=== PATIENT | female | born 1950 | race Caucasian/White ===

== ENCOUNTER 2025-03-19 15:37 | Emergency (ER) | payer MEDICARE, OTHER, SELFPAY ==
[2025-03-19] VITALS (13 sets, daily range): BP systolic 94–130; BP diastolic 44–72; PULSE 66–95; BMI 40.8
[2025-03-19 16:12] LABS: Hematocrit 34.3 % (37.0-47.0); Hemoglobin 12.1 g/dL (12.0-16.0); Mean Corp Hgb Conc. 35.3 g/dL (33.0-37.0); Mean Corpuscular Volume 87.3 fL (81.0-99.0); Nucleated Red Blood Cells % 0 %; Platelet Count 240 10^3/uL (130-400); Red Cell Dist. Width 12.1 % (11.5-14.5)
--- NOTE | 2025-03-19 16:28 | ED.GENMED ---
History of Present Illness
General
Chief Complaint: Dizziness
Source: patient
Exam Limitations: none
Time Seen by Provider: 03/19/25 16:12
Nursing documentation reviewed up to this point in time: agreed with
History of Present Illness
History of Present Illness:
Patient is a 74-year-old female who presents to the emergency department after near syncopal episode in grocery store. Patient reports that she was out shopping a grocery store about 1 hour prior to arrival when she started to feel very lightheaded
and experienced tunnel vision. She initially thought symptoms would pass however symptoms persisted prompting her to sit down on the ground of the cursor. She states every time she lifted her head she continued to have a very lightheaded sensation
and tunnel vision. She then had to lay down on the ground to prevent passing out. She did have nausea which preceded her feeling of lightheadedness.
By arrival to emergency department�patient states symptoms are improved however only when she is lying flat.
She denies any associated dizziness or sensation of movement. She denies any associated chest pain or shortness of breath. However she did note feeling a mild tightness sensation in her throat. She denies any recent viral symptoms including
fever, cough.
Patient states that this did happen 1 time in the past and it was suspected to be secondary to dehydration. Patient states she has been staying well-hydrated today however has not eaten anything.
Review of Systems
Review of Systems
Allergies reviewed?: Yes
All Other Systems: ROS reviewed and negative except as documented in HPI and ROS
Phy Exam
Physical Exam
Physical Exam:
Vitals: BP soft. Otherwise vital signs stable. Afebrile
General: Patient is laying flat on examination. In no distress
Skin: Warm and dry, no rashes or lesions
Head: Normocephalic, atraumatic
Eyes: Sclera nonicteric. Pupils equal round and reactive to light bilaterally
Throat: Protecting airway
Neck: Normal ROM, no cervical spine tenderness, no meningismus. No JVD
Cardiac: Regular rate and rhythm, no murmurs.
Pulm: Normal respiratory effort, no wheezes, rales, rhonchi heard on exam
.
Abdomen: Abdomen soft and nontender.
Extremities: No evidence of cyanosis or edema. Palpable DP pulses bilaterally
Neuro: AAOx3. Grossly intact.
Psychiatric: Normal affect.
Course
Orders/Labs/Results
Orders:
Orders
03/19/25 15:50
Electrocardiogram (*1) Urgent
Reason for Study: Vertigo / Dizzy
03/19/25 15:51
EKG- Treatment ONCE
03/19/25 16:04
Basic Metabolic Panel Urgent
Complete Blood Count/With Diff Urgent
03/19/25 16:27
Orthostatic VS- Treatment ONCE
03/19/25 16:36
Troponin I Urgent
03/19/25 17:36
Basic Metabolic Panel Urgent
Serum Osmolality Urgent
03/19/25 18:21
Osmolality, Random Urine Urgent
Date Specimen was Collected: 03/19/25
Time Specimen was Collected: 18:17
Urine Sodium Urgent
Date Specimen was Collected: 03/19/25
Time Specimen was Collected: 18:17
03/19/25 18:37
Comprehensive Metabolic Panel Urgent
Abnormal Lab Results
03/19/25 03/19/25 03/19/25
16:04 17:36 18:37
WBC 11.5 H 10^3/uL
(4.8-10.8)
RBC 3.93 L 10^6/uL
(4.20-5.40)
Hct 34.3 L %
(37.0-47.0)
Abs Immat Gran (auto) 0.1 H 10^3/uL
(0-0.05)
Absolute Neuts (auto) 8.8 H 10^3/uL
(1.4-6.5)
Absolute Monos (auto) 1.0 H 10^3/uL
(0.1-0.6)
Neutrophils % 76.6 H %
(42.2-75.2)
Lymphocytes % 12.7 L %
(20.5-51.1)
Sodium 126 L mmol/L 126 L mmol/L 128 L mmol/L
(135-145) (135-145) (135-145)
Carbon Dioxide 18 L mmol/L 18 L mmol/L 19 L mmol/L
(22-30) (22-30) (22-30)
BUN 29 H mg/dl 27 H mg/dl 26 H mg/dl
(7-17) (7-17) (7-17)
Creatinine 1.2 H mg/dL 1.2 H mg/dL 1.2 H mg/dL
(0.6-1.0) (0.6-1.0) (0.6-1.0)
Glucose 140 H mg/dl 115 H mg/dl 116 H mg/dl
(70-99) (70-99) (70-99)
Serum Osmolality 273 L mOsm/kg
(275-300)
Calcium 8.3 L mg/dl
(8.4-10.2)
03/19/25 16:04
03/19/25 18:37
Vital Signs
Initial and Last Documented VS:
Initial Vital Signs
Temp Pulse Resp BP Pulse Ox
97.3 F 72 20 101/52 97
03/19/25 15:44 03/19/25 15:44 03/19/25 15:44 03/19/25 15:44 03/19/25 15:44
Last Documented Vital Signs
Temp Pulse Resp BP Pulse Ox
97.3 F 66 14 114/66 97
03/19/25 15:44 03/19/25 20:46 03/19/25 20:45 03/19/25 20:46 03/19/25 18:00
MDM/Problems Addressed
Differential Diagnosis Includes:
Not limited to: Acute dehydration, electrolyte abnormalities, near syncope, cardiac arrhythmia, viral illness, etc.
MDM/Problems Addressed:
74-year-old female who presents after near syncopal event in grocery store preceded by lightheadedness and mild nausea. No preceding chest pain, shortness of breath, true dizziness. Patient is soft BP on arrival with otherwise stable vital signs.
Physical exam as above. Patient laying flat on my initial evaluation and states sitting up makes her feel extremely lightheaded. Cardiac/pulmonary assessment unremarkable. No focal neurologic deficits noted. ED plan: Check labs, orthostatic
vital signs, EKG, give IV fluids. Symptoms likely related to dehydration/orthostatic hypotension however will evaluate for other syncopal etiologies such as cardiac arrhythmia, etc.
Update: Labs reviewed. CBC with mild leukocytosis. Chemistry reveals hyponatremia with a sodium of 126 as well as mild renal insufficiency with a creatinine of 1.2. There are no baseline values for comparison. Troponin undetectable. EKG shows
normal sinus rhythm without evidence of a arrhythmia. Will send urine sodium studies for further evaluation. Patient was found to be orthostatic however states she is feeling better. At this point�syncopal event possibly secondary to orthostatic
hypotension versus symptomatic hyponatremia. Low suspicion for cardiac process. Will continue to hydrate patient and reassess following repeat labs.
Update: Repeat labs reveal sodium mildly elevated to 128 after 1 liter IV fluids. Urine sodium, osmolality consistent with hypovolemic hyponatremia. Symptoms likely secondary to acute dehydration. Orthostatic vital signs obtained after second
liter of IV fluids somewhat improved and patient states she feels much better than arrival. She is ambulating to and from bathroom without difficulty. Discussed admission with patient given possible symptomatic hyponatremia however patient adamant
that she feels better would like to be discharged home. Advised staying well-hydrated and stressed importance of repeat lab work with primary care to evaluate for improving sodium and reevaluate renal function. Very strict return precautions
discussed.
Chronic conditions affecting care:
Diabetes
Acute Exacerbation and/or Progression of Chronic Illness:
Acute hyperglycemia
*Pulse Oximetry
SaO2: 97
Oxygen Mode of Delivery: Room air
Patient hypoxic: no
*EKG
Interpreted by ED Provider?: Yes
EKG Intrepretation Date: 03/19/25
Interpretation: abnormal
Comparison EKG: no comparison EKG present
Heart Rate: 67
Rate: normal
Rhythm: sinus
[place]: normal axis
Interval: normal QT interval
QRS Pattern: normal QRS
Ischemia: no ischemia
*Repair Clerk Interpretation
Rate: normal
Interpretation: normal
Heart Rate: 63
Rhythm: sinus
*Critical Care Note
Total Time (30-74mins, 75-104mins- exclusive of procedures): Not Applicable
ED Attending Note
-
Portions of this chart may have been created with voice recognition software.� Occasional wrong word or��sound alike� substitutions may have occurred due to the inherent limitations of voice recognition software.
Discharge Plan
Departure
Patient Disposition: Home (Routine Discharge)
Date of Disposition: 03/19/25
Time of Disposition: 20:57
Patient with high blood pressure during this ER visit?: No
Condition: Good
Covid-19: Not Applicable
Discharge Problem:
Near syncope, Orthostatic hypotension, Hyponatremia
Instructions: Near Fainting (DC), Hyponatremia, Hypovolemia in adults, Dehydration in adults - ED discharge instructions
Referrals:
UNKNOWN - PT DOES,NOT KNOW [Unknown Provider]
Activity Restrictions/Additional Instructions:
RETURN TO THE EMERGENCY DEPARTMENT WITH ANY FEVER, CHILLS, CHEST PAIN OR SHORTNESS OF BREATH, PERSISTENT LIGHTHEADEDNESS/DIZZINESS, ANY EPISODES OF FAINTING, SIGNS OF SEVERE DEHYDRATION, OR ANY OTHER CONCERNS unsteady gait,
- As discussed�I suspect your near fainting was likely secondary to dehydration. You are given 2 L of fluid in the emergency department.
- As discussed that your sodium level was low and your kidney function was slightly elevated.
- It is important stay well-hydrated. Follow-up with your primary care provider for repeat lab work to ensure these levels normalize.
Monitor your symptoms closely and return to the emergency department with any acute worsening/new symptoms or any other concerns
Interventions
Interventions:
*Risk Screen - Suicide Last Done: 03/19/25 15:47
*Neglect/Abuse Screening Last Done: 03/19/25 15:47
*ED- Fall Risk Assessment Last Done: 03/19/25 15:48
*Nursing Disposition Last Done: 03/19/25 21:14
ED- Neurological Assessment Last Done: 03/19/25 16:18
ED Swallowing Screen Last Done: 03/19/25 15:49
Discharge Date and Time
Discharge Date/Time: 03/19/25 21:15
Print Language: TAJIK
[2025-03-19 16:34] LABS: Blood Urea Nitrogen 29 mg/dl (7-17); Calcium 9.0 mg/dl (8.4-10.2); Carbon Dioxide 18 mmol/L (22-30); Chloride 103 mmol/L (98-107); Estimated Creatinine Clearance 56 ml/min; Glucose 140 mg/dl (70-99); Sodium 126 mmol/L (135-145); eGFR 48.09
[2025-03-19 17:18] LABS: Troponin I < 0.012 ng/ml
[2025-03-19 18:11] LABS: Blood Urea Nitrogen 27 mg/dl (7-17); Calcium 8.3 mg/dl (8.4-10.2); Carbon Dioxide 18 mmol/L (22-30); Chloride 102 mmol/L (98-107); Estimated Creatinine Clearance 56 ml/min; Glucose 115 mg/dl (70-99); Sodium 126 mmol/L (135-145); eGFR 48.09
[2025-03-19 19:26] LABS: ALT (SGPT) 17 U/L (0-35); AST (SGOT) 18 U/L (14-36); Albumin 4.0 g/dl (3.5-5.0); Alkaline Phosphatase 90 U/L (38-126); Blood Urea Nitrogen 26 mg/dl (7-17); Calcium 9.1 mg/dl (8.4-10.2); Carbon Dioxide 19 mmol/L (22-30); Chloride 102 mmol/L (98-107); Estimated Creatinine Clearance 56 ml/min; Glucose 116 mg/dl (70-99); Potassium 5.1 mmol/L (3.5-5.1); Sodium 128 mmol/L (135-145); Total Protein 6.6 g/dl (6.3-8.2); eGFR 48.09
== END 2025-03-19 21:15 | disposition home or self-care (01) ==
LOC: EMR 15:37
PROVIDERS: Emergency Medicine; Physician Assistant; EMERGENCY PHYSICIAN Student in an Organized Health Care Education/Training Program; FAMILY PHYSICIAN Internal Medicine
DX: I95.1 Orthostatic hypotension (principal); E87.1 Hypo-osmolality and hyponatremia; E11.9 Type 2 diabetes mellitus without complications
CPT/HCPCS: 99283; 80048; 80053; 83930; 83935; 84300; 84484; 85025; 93005

== ENCOUNTER 2025-03-26 06:41 | Observation (INO) | payer MEDICARE, OTHER, SELFPAY ==
[2025-03-25 21:18] VITALS: BP 146/93
[2025-03-25 21:37] LABS: Hematocrit 34.7 % (37.0-47.0); Hemoglobin 12.1 g/dL (12.0-16.0); Mean Corp Hgb Conc. 34.9 g/dL (33.0-37.0); Mean Corpuscular Volume 87.2 fL (81.0-99.0); Nucleated Red Blood Cells % 0 %; Platelet Count 266 10^3/uL (130-400); Red Cell Dist. Width 12.1 % (11.5-14.5)
[2025-03-25 21:51] LABS: ALT (SGPT) 18 U/L (0-35); AST (SGOT) 20 U/L (14-36); Albumin 4.2 g/dl (3.5-5.0); Alkaline Phosphatase 86 U/L (38-126); Blood Urea Nitrogen 18 mg/dl (7-17); Calcium 9.7 mg/dl (8.4-10.2); Carbon Dioxide 24 mmol/L (22-30); Chloride 98 mmol/L (98-107); Glucose 133 mg/dl (70-99); Lipase 169 U/L (23-300); Potassium 5.0 mmol/L (3.5-5.1); Sodium 126 mmol/L (135-145); Total Protein 6.7 g/dl (6.3-8.2); eGFR 53.39
[2025-03-25 22:01] LABS: Troponin I < 0.012 ng/ml
[2025-03-25 23:51] VITALS: BP 151/85
--- NOTE | 2025-03-25 23:56 | ED.GENMED ---
History of Present Illness
General
Chief Complaint: Abdominal Symptoms
Source: patient
Exam Limitations: none
Time Seen by Provider: 03/25/25 23:42
Nursing documentation reviewed up to this point in time: agreed with
History of Present Illness
History of Present Illness:
Note:
CHIEF COMPLAINT(S)
Abdominal pain and intermittent lightheadedness.
HISTORY OF PRESENT ILLNESS
The patient is a 74-year-old female with a pmh of diabetes who presented with a chief complaint of abdominal pain that began at 3:00 AM today. The pain was intense enough to wake her from sleep and is described as occurring in waves without complete
resolution. Initially, the pain was high in the abdomen and later progressed upward, causing concern about possible cardiac involvement. Patient reports that throughout the day, the pain changes location,The patient reported intermittent headaches
throughout the day and attempted to manage them with acetaminophen, though relief was not achieved. She experienced episodes of lightheadedness and expressed a history of low sodium levels, previously at 126 mmol/L, which was thought to be due to
hypovolemia and improved with IV fluids. The patient notes ongoing fluctuations in her blood pressure.
The patient has a past surgical history of cholecystectomy and biliary duct intervention. Previous experiences with abdominal pain were related to these conditions but were located lower in the abdomen. Today�s pain has not completely matched those
past episodes, and she denied nausea with actual vomiting, although the feeling of nausea has been present. Patient reports that she has tried to make herself vomit with how nauseated she has felt.
She has not sought care for gastrointestinal issues previously but acknowledges potential age-related changes in digestion. The patient denies fever and has been actively trying to maintain hydration, consuming electrolyte solutions and increasing
salt intake since a recent episode of hyponatremia. No recent diuretic use was reported. She takes metformin, atorvastatin, oxybutynin. She recently stopped taking lisinopril. The pain started to radiate into the chest. She has no history of
cardiac disease. She denies shortness of breath.
CHRONIC MEDICAL CONDITIONS SIGNIFICANTLY AFFECTING CARE
History of biliary duct obstruction with surgical intervention.
SOCIAL DETERMINANTS AFFECTING HEALTH
Family history of significant cardiac issues, with the patients father and two brothers having undergone bypass surgery and stent placement.
No personal history of cardiac disease
PHYSICAL EXAM
- Nursing notes reviewed and vital signs reviewed.
General: Patient is well appearing and in no acute distress; non-toxic
Skin: Warm and dry, no rashes or lesions
Head: Normocephalic, atraumatic
Eyes: Sclera non-icteric. EOMs intact.
Cardiac: Regular rate and rhythm, no murmurs
Peripheral Vascular: No lower extremity swelling or edema
Pulm: Normal respiratory effort, no wheezes, rales, rhonchi
Abdomen: Generalized nonfocal abdominal tenderness to palpation, right greater than left with some guarding, normoactive bowel sounds
Musculoskeletal: No tenderness to palpation of the external chest wall
Neuro: CN II-XII intact, no focal neurologic deficits.
Psychiatric: Appropriate mood and affect.
PLAN
- CT scan
- CMP, CBC, lipase
- urine osmolality, urinalysis
- Administer a gastrointestinal cocktail to assess if symptoms may be related to gastrointestinal reflux or gastritis.
- Educate and monitor the patients sodium levels to determine any underlying causes or patterns, considering her past episodes of low sodium.
DIFFERENTIAL DIAGNOSIS
The differential diagnosis includes, in no particular order and is not limited to:
1. Gastritis or Peptic Ulcer Disease
2. Gastroesophageal Reflux Disease (GERD)
3. Pancreatitis
4. Cardiac-related pain (angina or myocardial infarction)
5. Gallbladder-related issues despite cholecystectomy (such as biliary stricture or residual duct stones)
6. Abdominal aneurysm
7. Non-cardiac chest pain
8. Electrolyte imbalance effects
9. Functional Dyspepsia
10. Recurrent bilious obstruction mechanisms
CHART REVIEW
Reviewed previous ER physician documentation from 03/19/2025, patient seen for near syncopal episode, was found to be hypernatremic which was attributed to hypovolemia did improve with IV fluids
MDM/disposition
The patient is a 74-year-old female with a pmh of diabetes who presented with a chief complaint of abdominal pain that began at 3:00 AM today. The pain was intense enough to wake her from sleep and is described as occurring in waves without complete
resolution. Initially, the pain was high in the abdomen and later progressed upward on physical exam, she is well-appearing no acute distress. She has no tenderness palpation of the external chest wall. She has no fever. She had blood work done
which demonstrated unremarkable undetectable troponin x 2 and she had a EKG with no ischemic changes. She went for CT scan which showed constipation but was otherwise unremarkable. Suspect pain related to GERD versus musculoskeletal etiology.
Minimal improvement with GI cocktail, Pepcid, Protonix. Looking at her CMP, she has hyponatremia of 126. We have no baseline blood work other than the blood work obtained last week which showed a sodium of 126 as well. Patient has also been
feeling nauseous, fatigued, and lightheaded. Clinically she is euvolemic. She has a low serum and urine osmolality. Patient does not feel well enough for discharge. Will refer for admission for further workup.
Review of Systems
Review of Systems
All Other Systems: ROS reviewed and negative except as documented in HPI and ROS
Phy Exam
Physical Exam
Physical Exam:
see hpi
Course
Orders/Labs/Results
Orders:
Orders
03/25/25 21:20
Electrocardiogram (*1) Urgent
Reason for Study: Abdominal Pain
EKG- Treatment ONCE
03/25/25 21:30
Complete Blood Count/With Diff Urgent
Comprehensive Metabolic Panel Urgent
Lipase Urgent
Serum Osmolality Urgent
Comment: ADD ON
Troponin I Urgent
03/26/25 00:11
CT Abd/pelvis W Iv Cont Urgent
Comment:
Reason For Exam: right sided abdominal pain
0.9% Sodium Chloride 500 ml [Nss] 500 ml IV BOLUS
Sucralfate Suspension [Carafate Suspension] 1 gm PO NOW STA
03/26/25 00:16
Add On- LAB Urgent
Tests Added?: serum osmolality
03/26/25 00:30
Electrocardiogram (*1) Urgent
Reason for Study: Abdominal Pain
03/26/25 02:03
Osmolality, Random Urine Urgent
Date Specimen was Collected: 03/26/25
Time Specimen was Collected: 01:58
Troponin I Urgent
Urinalysis Reflex To Culture Urgent
Date Specimen was Collected: 03/26/25
Time Specimen was Collected: 01:58
Urine Sodium Urgent
Date Specimen was Collected: 03/26/25
Time Specimen was Collected: 01:58
Comment: ADD ON
03/26/25 04:02
Famotidine [Pepcid] 20 mg IV NOW STA
Mag Hydrox/Al Hydrox/Simeth [Maalox] 30 ml Phenobarb/Hyoscy/Atropine/Scop [] 10 ml Viscous Lidocaine 2% [Xylocaine Viscous Cup] 10 ml PO NOW
Pantoprazole [Protonix IV] 40 mg IV NOW STA
03/26/25 04:05
Basic Metabolic Panel Urgent
TSH Urgent
Comment: ADD ON
03/26/25 04:10
Mag Hydrox/Al Hydrox/Simeth [Maalox] 30 ml .ROUTE .STK-MED ONE
Phenobarb/Hyoscy/Atropine/Scop [] 10 ml .ROUTE .STK-MED ONE
03/26/25 04:11
Viscous Lidocaine 2% [Xylocaine Viscous Cup] 15 ml .ROUTE .STK-MED ONE
03/26/25 Breakfast
Clear Liquid
At Your Request: Full Participation
Does patient need a safe tray?: No
03/26/25 06:24
Admit/Transfer Patient As Directed
Co-Sign Provider:
Level of Care: Observation services
Assign to:: Telemetry
Physician / Group: jomar/hospitalist
Diagnosis: hyponatremia, lightheadedness, abdominal pain
Reason for Telemetry: Arrhythmia
Date to Stop Telemetry: 03/29/25
Time to Stop Telemetry: 11:00
Reason for Hospitalization: hyponatremia, lightheadedness, abdominal pain
PRN Pain Medication Management As Directed
May give lesser potent ordered pain med per pt: Yes
preference::
Protocol:: Medication orders for pain may be administered in a
manner that supports deferring to patient preference
when the pt is:
- Requesting an ordered lesser potent pain medication.
Least to most potent pain medications are defined
as: acetaminophen < NSAID < tramadol < opioids
(morphine, oxycodone, hydromorphone).
- Requesting a lesser dose of the same medication IF
ORDERED.
- Requesting a less intrusive route of administration
if both routes are prescribed by the provider (PO <
IV).
03/26/25 06:26
Code Status As Directed
Resuscitation Status: Full Code
03/26/25 06:31
Add On- LAB Stat
Tests Added?: TSH
03/26/25 07:58
Bisacodyl [Dulcolax] 10 mg RECTAL [id number] PRN
Docusate W/Senna [Senokot-S] 1 tablet PO BIDPRN PRN
Polyethylene Glycol Powder [Miralax] 17 grams PO DAILYPRN PRN
03/26/25 07:58
NEPHROLOGY CONSULT Routine
Consulting Provider: Anamaria Brink
Was physician already notified: Yes
Reason for consult: hyponatremia, hypo-osmolar, euvolemic vs hypovolemic, Na 126
Activity As Directed
Activity Level: With Assistance
Intake/ Output As Directed
Frequency: Per unit guidelines
Vital Signs As Directed
Frequency: Per unit guidelines
Weight As Directed
Frequency: Daily
Pulse Ox/spot Check [RESP] Routine
Quantity: 1
DX Deep Vein Thrombosis Video Routine
03/26/25 08:32
Basic Metabolic Panel Routine
03/26/25 08:33
Cortisol, Random IN AM
03/26/25 18:00
Enoxaparin Sodium [Lovenox] 40 mg SC QPM
03/26/25 22:00
Atorvastatin [Lipitor] 40 mg PO HS
03/27/25 06:00
Basic Metabolic Panel IN AM
03/29/25 11:00
DC Protocol for Telemetry ONCE
Abnormal Lab Results
03/25/25 03/26/25 03/26/25
21:30 02:03 04:05
RBC 3.98 L 10^6/uL
(4.20-5.40)
Hct 34.7 L %
(37.0-47.0)
Absolute Neuts (auto) 7.0 H 10^3/uL
(1.4-6.5)
Absolute Monos (auto) 0.7 H 10^3/uL
(0.1-0.6)
Lymphocytes % 17.7 L %
(20.5-51.1)
Sodium 126 L mmol/L 126 L mmol/L
(135-145) (135-145)
BUN 18 H mg/dl
(7-17)
Creatinine 1.1 H mg/dL
(0.6-1.0)
Glucose 133 H mg/dl 123 H mg/dl
(70-99) (70-99)
Serum Osmolality 269 L mOsm/kg
(275-300)
Urine Ketones 2+ A
(Negative)
Urine Osmolality 198 L mOsm/kg
(300-900)
03/25/25 21:30
03/26/25 04:05
Vital Signs
Initial and Last Documented VS:
Initial Vital Signs
Temp Pulse Resp BP Pulse Ox
98.0 F 74 20 146/93 98
03/25/25 21:18 03/25/25 21:18 03/25/25 21:18 03/25/25 21:18 03/25/25 21:18
Last Documented Vital Signs
Temp Pulse Resp BP Pulse Ox
98.1 F 65 14 170/77 98
03/26/25 08:11 03/26/25 08:11 03/26/25 08:11 03/26/25 08:11 03/26/25 08:11
*Pulse Oximetry
SaO2: 98
Oxygen Mode of Delivery: Room air
Patient hypoxic: no
*Critical Care Note
Total Time (30-74mins, 75-104mins- exclusive of procedures): Not Applicable
ED Attending Note
-
Portions of this chart may have been created with voice recognition software.� Occasional wrong word or��sound alike� substitutions may have occurred due to the inherent limitations of voice recognition software.
Discharge Plan
Departure
Patient Disposition: Admit
Date of Disposition: 03/26/25
Time of Disposition: 05:15
Admit to: Med/Surg
Presentation/result/management discussed w/ accepting MD/DO: Hospitalist
Condition: Fair
Discharge Problem:
Hyponatremia, Light-headedness
Interventions
Interventions:
*Risk Screen - Suicide Last Done: 03/26/25 01:28
*General Assessment Last Done: 03/25/25 21:18
*Neglect/Abuse Screening Last Done: 03/26/25 00:28
*ED- Fall Risk Assessment Last Done: 03/26/25 00:28
*ED COVID-19 Vaccine History Last Done: 03/26/25 00:28
*Nursing Disposition Last Done: 03/26/25 08:03
DC-[id number]-[id number] Assessment Last Done: 03/25/25 23:45
Discharge Date and Time
Discharge Date/Time: 03/26/25 08:04
[2025-03-26] VITALS (14 sets, daily range): BP systolic 106–170; BP diastolic 51–77; PULSE 59–85; BMI 42.7
[2025-03-26] MEDS: CARAFATE SUSPENSION 1 GM PO (00:25)
[2025-03-26] MEDS: NSS 500 IV (00:34)
[2025-03-26 02:24] LABS: Urine Character Clear (Clear)
[2025-03-26 02:58] LABS: Troponin I < 0.012 ng/ml
[2025-03-26] MEDS: PEPCID 20 MG IV (04:12)
[2025-03-26] MEDS: PROTONIX IV 40 MG IV (04:12)
[2025-03-26] MEDS: MAALOX 50 PO (04:12)
[2025-03-26 04:41] LABS: Blood Urea Nitrogen 16 mg/dl (7-17); Calcium 9.2 mg/dl (8.4-10.2); Carbon Dioxide 23 mmol/L (22-30); Chloride 99 mmol/L (98-107); Estimated Creatinine Clearance 67 ml/min; Glucose 123 mg/dl (70-99); Potassium 4.6 mmol/L (3.5-5.1); Sodium 126 mmol/L (135-145); eGFR 59.86
--- NOTE | 2025-03-26 05:56 | HPS.HSE ---
Family Physician
-
Family Physician: Pancho Armendariz
Chief Complaint
-
Lightheaded and fatigue
History of Present Illness
Patient is a 74-year-old woman with past medical history significant for diabetes, hyperlipidemia, right kidney staghorn calculus, who presented to the emergency department secondary to abdominal pain that began at around 3 in the morning. It woke
her from her sleep and was described as intermittent waves of pain that feel like spasm, in her mid-epigastric region. She has had intermittent abdominal pain throughout the day along with headaches not relieved with Tylenol. This was associated
with episodes of lightheadedness. She has a history of hyponatremia which was initially diagnosed as hypovolemia for which she received IV fluids, and was here on 03/19 with near-syncope and hyponatremia Na 126. She received 2 liters IVF at that time
with repeat Na of 128 on 03/19. She was dc'd home to follow up with her PCP. Today, she has persistent intermittent ROMERO, nausea, lightheadedness, dizziness; Serum osmolality 269. She has not had any vomiting.
ED treatment- Minimal improvement with GI cocktail, Pepcid, Protonix, 500 mL bolus of IV fluids
Medical History
Past Medical History
Past Medical History: Reports Hypercholesterolemia, NIDDM and Other (Right kidney staghorn calculus)
Past Surgical History: Reports Cholecystectomy, Gynocological (Hysterectomy), Orthopedic (Lumbar disc surgery) and Other (Kidney surgery)
Social History
Tobacco: Non-smoker
Alcohol: None
Drug: None
Family History
Family History: Not pertinent
Allergies / Home Medications
Allergies reflects when Allergies were last updated in [facility].
Home Medications with original date entered in [facility]
Allergy/Medication List:
Allergies
Allergy/AdvReac Type Severity Reaction Status Date / Time
egg yolk Allergy Vomiting Verified 03/25/25 21:18
Sulfa (Sulfonamide Allergy Vomiting Verified 03/25/25 21:18
Antibiotics)
Home Medications
atorvastatin 40 mg tablet 40 mg PO HS 03/26/25
diclofenac potassium 25 mg capsule 25 mg PO DAILY 03/26/25
metformin 500 mg tablet 500 mg PO HS 03/26/25
oxybutynin chloride 2.5 mg tablet 2.5 mg PO HS 03/26/25
Review of Systems
-
A 12 point ROS was completed and negative except as noted: Yes
Physical Exam
Vital Signs
Vital Signs
Temp Pulse Resp BP Pulse Ox
97.7 F 67 10 127/63 95
03/26/25 01:00 03/26/25 05:00 03/26/25 05:00 03/26/25 05:00 03/26/25 05:00
Physical Exam
General: Well Developed, Well Nourished and Conversant
HEENT: NormoCephalic, Anicteric and Moist mucous membranes
Respiratory: Clear
Cardiac: S1/S2 and Regular Rhythm
GI: Soft and Tender (mid-epigastric tender to light palpation)
Musculoskeletal: No Clubbing, No Cyanosis and No Edema
Skin: Warm and Dry
Neuro: AO x 3, No Motor Deficits and Nonfocal/grossly intact
Psych: Calm
Laboratory Results
-
03/25/25 21:30
03/26/25 04:05
Laboratory Results
Total Bilirubin 0.8 mg/dl (0.2-1.3) 03/25/25 21:30
AST 20 U/L (14-36) 03/25/25 21:30
ALT 18 U/L (0-35) 03/25/25 21:30
Alkaline Phosphatase 86 U/L (38-126) 03/25/25 21:30
Troponin I < 0.012 ng/ml 03/26/25 02:03
Lipase 169 U/L (23-300) 03/25/25 21:30
Data Reviewed
-
CT Scan: Report Reviewed by me (CT- constipation, see below)
Impression/Plan
-
IMPRESSION:Patient is a 74-year-old woman with past medical history significant for diabetes, hyperlipidemia, right kidney staghorn calculus, who presented to the emergency department secondary to abdominal pain that began at around 3 in the
morning. It woke her from her sleep and was described as intermittent waves of pain that feel like spasm, in her mid-epigastric region. She has had intermittent abdominal pain throughout the day along with headaches not relieved with Tylenol.
This was associated with episodes of lightheadedness. She has a history of recent hyponatremia which was initially diagnosed as hypovolemia for which she received IV fluids, and was here on 03/19 with near-syncope and hyponatremia Na 126. She
received 2 liters IVF at that time with repeat Na of 128 on 03/19. She was dc'd home to follow up with her PCP. Today, she has persistent intermittent ROMERO, nausea, lightheadedness, dizziness; Serum osmolality 269. She has not had any vomiting.
ED treatment- Minimal improvement with GI cocktail, Pepcid, Protonix, 500 mL bolus of IV fluids
# Abdominal pain, possibly due to constipation; normal LFTs and lipase, hx of cholecystectomy
-CT evidence for constipation without bowel obstruction or diverticulitis, pending official report, she's had 2 BM yesterday that were normal
-Continue supportive management
-IV fluids
# Hyponatremia, likely hypo-osmolar, Euvolemic Hyponatremia, possible SIADH, no hx of polydipsia
-check urine sodium, TSH, random cortisol, BP labile with some low BP readings
-not on diuretics
-Nephrology consultation
-Hold off on further IV fluids after fluids received in the ED and repeat BMP this afternoon
# Hyperlipidemia
# Ffj-xqganlz-gmsvuabvs diabetes
-hold metformin for now, monitor glucose, am BMP
# History of staghorn calculi
DVT prophylaxis-Lovenox
Full code
[2025-03-26 08:42] LABS: TSH 1.47 uIU/ml (0.47-4.68)
[2025-03-26 09:10] LABS: Blood Urea Nitrogen 14 mg/dl (7-17); Calcium 9.1 mg/dl (8.4-10.2); Chloride 100 mmol/L (98-107); Glucose 121 mg/dl (70-99); Potassium 4.3 mmol/L (3.5-5.1); Sodium 127 mmol/L (135-145)
[2025-03-26 09:21] LABS: Carbon Dioxide 19 mmol/L (22-30); Estimated Creatinine Clearance 67 ml/min; eGFR 59.86
[2025-03-26 09:40] LABS: Cortisol, Random 14.7 ug/dl
--- NOTE | 2025-03-26 10:10 | CM ---
Patient seen at bedside
IA completed
[facility] form explained & signed. In chart
Dx: hyponatremia, lightheadness, abdominal pain
PMH: diabetes, hyperlipidemia, right kidney staghorn calculus
Lives in a 1 story home with , no [place]
PLOF: Independent
retired
DME: [employer]
Denies insecurities
PCP: Dr. Pancho Armendariz
Pharmacy: [facility]
PLAN: Home, no needs anticipated, CM to continue to follow
[2025-03-26] MEDS: TYLENOL 650 MG PO (14:04)
[2025-03-26 14:13] LABS: Blood Urea Nitrogen 13 mg/dl (7-17); Calcium 9.5 mg/dl (8.4-10.2); Carbon Dioxide 26 mmol/L (22-30); Chloride 98 mmol/L (98-107); Estimated Creatinine Clearance 67 ml/min; Glucose 129 mg/dl (70-99); Potassium 4.9 mmol/L (3.5-5.1); Sodium 127 mmol/L (135-145); eGFR 59.86
--- NOTE | 2025-03-26 15:27 | W.CON.NEPH ---
Consultation
-
Date/Time Consultation Requested: 03/26/25 0758
Date/Time Consultation Performed: 03/26/25 1630
Requesting Provider: Kasey Sheppard
Performing Provider: Anamaria King
Reason for Consultation: Hyponatremia
Medical History
-
Chief Complaint: Lightheaded and fatigue
History of Present Illness:
74-year-old woman with past medical history significant for diabetes, hyperlipidemia, right kidney staghorn calculus, who presented to the emergency department secondary to abdominal pain that began at 3am woke from sleep. pain that felt like a
spasm in her mid-epigastric region. She has had intermittent abdominal pain throughout the day along with headaches not relieved with Tylenol and had episodes of lightheadedness. She has a history of hyponatremia which was initially diagnosed as
hypovolemia for which she received IV fluids, and was here on 03/19 with near-syncope and hyponatremia Na 126. She received 2 liters IVF at that time with repeat Na of 128 on 03/19. She was dc'd home to follow up with her PCP. Today, she has persistent
intermittent ROMERO, nausea, lightheadedness, dizziness; Serum osmolality 269, sodium low at 127. SHe reports driking lot of liquids since last ER visit. Appetite is good. She was on vacation for last 1week however due to not feeling well she retunred
home early. She also has knee arthritis and takes Diclofenac daily. Nephrology asked to eval her for hyponatremia. CT scan noted right 7mm stone non obst. POssible constipation. Currently she is on liquid diet. Had BMs already today. No fever or
cough or cp or sob. No LE edema.
Past Medical History
Hypercholesterolemia, NIDDM and Right kidney staghorn calculus
Past Surgical History: Other (Cholecystectomy, Gynocological (Hysterectomy), Orthopedic (Lumbar disc surgery) and Other (Kidney surgery))
Social History
Tobacco: Non-Smoker
Alcohol: None
Drug: None
Living: With Family
Family History
Family History: Not Pertinent
Allergies / Home Medications
Allergy/AdvReac Type Severity Reaction Status Date / Time
egg yolk Allergy Vomiting Verified 03/25/25 21:18
Sulfa (Sulfonamide Allergy Vomiting Verified 03/25/25 21:18
Antibiotics)
�Medication �Instructions �Recorded �Confirmed �Type
atorvastatin 40 mg tablet 40 mg PO HS 03/26/25 03/26/25 History
diclofenac potassium 25 mg capsule 25 mg PO DAILY 03/26/25 03/26/25 History
metformin 500 mg tablet 500 mg PO HS 03/26/25 03/26/25 History
oxybutynin chloride 2.5 mg tablet 2.5 mg PO HS 03/26/25 03/26/25 History
Review of Systems
-
All other systems: Negative unless noted
Physical Exam
Vital Signs
Vital Signs
Temp Pulse Resp BP Pulse Ox
97.8 F 63 12 148/69 99
03/26/25 11:00 03/26/25 11:00 03/26/25 11:00 03/26/25 11:00 03/26/25 11:00
Lab Results
WBC 9.6 10^3/uL (4.8-10.8) 03/25/25 21:30
RBC 3.98 10^6/uL (4.20-5.40) L 03/25/25 21:30
Hgb 12.1 g/dL (12.0-16.0) 03/25/25 21:30
Hct 34.7 % (37.0-47.0) L 03/25/25 21:30
Plt Count 266 10^3/uL (130-400) 03/25/25 21:30
Sodium 127 mmol/L (135-145) L 03/26/25 13:00
Potassium 4.9 mmol/L (3.5-5.1) 03/26/25 13:00
Chloride 98 mmol/L (98-107) 03/26/25 13:00
Carbon Dioxide 26 mmol/L (22-30) 03/26/25 13:00
BUN 13 mg/dl (7-17) 03/26/25 13:00
Creatinine 1.0 mg/dL (0.6-1.0) 03/26/25 13:00
eGFR 59.86 03/26/25 13:00
Glucose 129 mg/dl (70-99) H 03/26/25 13:00
Calcium 9.5 mg/dl (8.4-10.2) 03/26/25 13:00
Albumin 4.2 g/dl (3.5-5.0) 03/25/25 21:30
Physical Exam
General: Awake, Alert, Oriented, AOx3, No Distress and Nontoxic
HEENT: EOMI, Anicteric, Conjunctivae Clear, Facial Symmetry, Neck Supple and No JVD
Respiratory: Clear, Normal Excursion and Nonlabored Respirations
Cardiac: S1/S2 and Regular Rate/Rhythm
Breast: Deferred by me
Abdomen: Soft, Nontender and Nondistended
Rectal: Deferred by Provider
Musculoskeletal: No Cyanosis, No Edema and Other
Skin: No Rash
Neuro: Nonfocal/Grossly Intact
Psych: Mood/afflect pleasant, Insight/judgement good and Appropriate
Assessment/Plan
-
IMP:
Abdominal pain, possibly due to constipation;
Hyponatremia
Hyperlipidemia
Yec-mbbxmfs-tafezzyxm diabetes
History of staghorn calculi
Arthritis
Plan:
A/w abd pain felt from constipation
hyponatremia-euvolemic
U osmo 198 and U na 47 possible mild SIADH from pain and exaggerated by NSAIDs+high fluid intake
maintain FR 48 ounces/day, TSH and cortisol were ok
BP stable
hold NSAIDs
will dose samsca today
d/w pt and nursing
[2025-03-26] MEDS: LOVENOX 40 MG SC (16:43)
[2025-03-26] MEDS: SAMSCA 7.5 MG PO (18:06)
[2025-03-26] MEDS: MAALOX 30 ML PO (18:07)
[2025-03-26] MEDS: LIPITOR 40 MG PO (22:09)
[2025-03-27 03:15] VITALS: BP 130/64
[2025-03-27 05:51] VITALS: BMI 41.0
[2025-03-27 07:00] VITALS: BP 125/51
[2025-03-27] MEDS: TYLENOL 650 MG PO ×2 (08:14→13:09)
[2025-03-27 08:30] LABS: Blood Urea Nitrogen 11 mg/dl (7-17); Calcium 9.7 mg/dl (8.4-10.2); Carbon Dioxide 26 mmol/L (22-30); Chloride 103 mmol/L (98-107); Estimated Creatinine Clearance 60 ml/min; Glucose 119 mg/dl (70-99); Potassium 4.8 mmol/L (3.5-5.1); Sodium 133 mmol/L (135-145); eGFR 53.39
--- NOTE | 2025-03-27 10:11 | W.PN.HOSP.TC ---
Today's Communication/Plan
-
Advance diet
DC plan
Assessment / Plan
Assessment / Plan
IMPRESSION:Patient is a 74-year-old woman with past medical history significant for diabetes, hyperlipidemia, right kidney staghorn calculus, who presented to the emergency department secondary to abdominal pain that began at around 3 in the
morning. It woke her from her sleep and was described as intermittent waves of pain that feel like spasm, in her mid-epigastric region. She has had intermittent abdominal pain throughout the day along with headaches not relieved with Tylenol.
This was associated with episodes of lightheadedness. She has a history of recent hyponatremia which was initially diagnosed as hypovolemia for which she received IV fluids, and was here on 03/19 with near-syncope and hyponatremia Na 126. She
received 2 liters IVF at that time with repeat Na of 128 on 03/19. She was dc'd home to follow up with her PCP. Today, she has persistent intermittent ROMERO, nausea, lightheadedness, dizziness; Serum osmolality 269. She has not had any vomiting.
ED treatment- Minimal improvement with GI cocktail, Pepcid, Protonix, 500 mL bolus of IV fluids
# Abdominal pain-seems to be self-limiting. Unclear etiology.
CT of the abdomen pelvis with no acute abdominal pathology
normal LFTs and lipase, hx of cholecystectomy
Unclear if related to food-she had scallops dinner prior to the presentation.
- Advance diet.
# Hyponatremia-euvolemic
Possibly mild SIADH from pain, nausea and exacerbated by use of NSAIDs
TSH and cortisol are okay
Status post 1 dose of Samsca with improvement in sodium to 133 today
Appreciate nephrology input
# Hyperlipidemia
# Feg-wcogzgb-pxmwsuwkn diabetes
-hold metformin for now, monitor glucose, am BMP
# History of staghorn calculi
DVT prophylaxis-Lovenox
Full code
Anticipated Discharge: Today
Subjective/Interval History
-
Date of Service: March 27, 2025
Patient today without abdominal pain. She is tolerating clear liquids.
She seems to have benefited from MiraLAX use yesterday. Denies any chronic reflux symptoms or GERD symptoms.
She has vague headache and some dizziness today.
No fever chills.
Objective Data
-
Labs:
Laboratory Results
03/27/25
07:33
Sodium 133 L
Potassium 4.8
Chloride 103
Carbon Dioxide 26
BUN 11
Creatinine 1.1 H
Glucose 119 H
Calcium 9.7
Vital Signs:
Vital Signs
Temp Pulse Resp BP Pulse Ox
97.8 F 56 16 125/51 100
03/27/25 07:00 03/27/25 07:00 03/27/25 07:00 03/27/25 07:00 03/27/25 07:00
I&O
03/26/25 03/27/25 03/28/25
06:59 06:59 06:59
Intake Total 500 / 500 720 / 720 480 / 480
Balance 500 / 500 720 / 720 480 / 480
Physical Exam
-
General: Comfortable
Respiratory: Non Labored Respirations; Negative Accessory Resp Muscle Use
GI: Soft and Nontender
Neuro: AO x 3
Psych: Calm; Negative Confused
Data Reviewed
-
Labs: Labs Reviewed by me
[2025-03-27 12:00] VITALS: BP 139/62
--- NOTE | 2025-03-27 12:15 | CM ---
Patient seen at bedside
diet advanced
tentative dc today per note
OBS status - form in chart
PLAN: Home, no needs
to transport
[2025-03-27] MEDS: MAALOX PO (13:09)
--- NOTE | 2025-03-27 16:31 | W.PN.NEPH.PH ---
Today's Communication / Plan
-
Fluid restriction
Assessment/Plan
-
IMP:
Abdominal pain, possibly due to constipation;
Hyponatremia
Hyperlipidemia
Adi-dkdlzen-pqfyarrhp diabetes
History of staghorn calculi
Arthritis
Plan:
Mild excess ADH
follow BMP in 1 or 2 weeks
Continue fluid restriction 48 ounces per day
For DC
-
-
Date of Service: March 27, 2025
CC / HPI / ROS
-
Chief Complaint:
Hyponatremia
History of Present Illness:
Sodium up to 133 with Samsca
Abdominal pain improving
Blood pressure stable
Review of Systems:
No chest pain or shortness of breath
Labs
-
Labs:
WBC 9.6 10^3/uL (4.8-10.8) 03/25/25 21:30
RBC 3.98 10^6/uL (4.20-5.40) L 03/25/25 21:30
Hgb 12.1 g/dL (12.0-16.0) 03/25/25 21:30
Hct 34.7 % (37.0-47.0) L 03/25/25 21:30
Plt Count 266 10^3/uL (130-400) 03/25/25 21:30
Sodium 133 mmol/L (135-145) L 03/27/25 07:33
Potassium 4.8 mmol/L (3.5-5.1) 03/27/25 07:33
Chloride 103 mmol/L (98-107) 03/27/25 07:33
Carbon Dioxide 26 mmol/L (22-30) 03/27/25 07:33
BUN 11 mg/dl (7-17) 03/27/25 07:33
Creatinine 1.1 mg/dL (0.6-1.0) H 03/27/25 07:33
eGFR 53.39 03/27/25 07:33
Glucose 119 mg/dl (70-99) H 03/27/25 07:33
Calcium 9.7 mg/dl (8.4-10.2) 03/27/25 07:33
Albumin 4.2 g/dl (3.5-5.0) 03/25/25 21:30
Physical Exam
-
Vital Signs:
Vital Signs
Temp Pulse Resp BP Pulse Ox
97.6 F 62 18 139/62 99
03/27/25 12:00 03/27/25 12:00 03/27/25 12:00 03/27/25 12:00 03/27/25 12:00
Cardiovascular:: Regular rate and rhythm
Respiratory:: Bilateral: CTA
Lung Excursion:: Normal
Abdomen:: Nontender and Soft
Bowel Sounds:: Normal
Extremity Edema:: None: Bilateral:
== END 2025-03-27 17:33 | disposition home or self-care (01) ==
LOC: 1 ACUTE 06:41
PROVIDERS: Emergency Medicine; Physician Assistant; ADMITTING PHYSICIAN Internal Medicine; ATTENDING PHYSICIAN Internal Medicine; CONSULT PHYSICIAN Internal Medicine; EMERGENCY PHYSICIAN Student in an Organized Health Care Education/Training Program; FAMILY PHYSICIAN Internal Medicine
DX: E87.1 Hypo-osmolality and hyponatremia (principal); R10.9 Unspecified abdominal pain; E11.9 Type 2 diabetes mellitus without complications; E78.00 Pure hypercholesterolemia, unspecified; Z79.84 Long term (current) use of oral hypoglycemic drugs; Z87.442 Personal history of urinary calculi; Z90.49 Acquired absence of other specified parts of digestive tract; Z90.710 Acquired absence of both cervix and uterus
CPT/HCPCS: 74177; 80048; 80053; 81003; 82533; 83690; 83930; 83935; 84300; 84443; 84484; 85025; 93005; 96361; 96374; 96375; 99285; G0378; Q9967

== ENCOUNTER → 2025-09-17 09:59 | Outpatient (REF) | payer MEDICARE, OTHER, SELFPAY | LOC: HWRCS 09:59 | PROVIDERS: ATTENDING PHYSICIAN Nuclear Medicine Nuclear Cardiology; FAMILY PHYSICIAN Internal Medicine | DX: R55 Syncope and collapse (principal); R06.02 Shortness of breath | CPT/HCPCS: 93306 ==